=== PATIENT | female | born 1960 | race Asian ===

== ENCOUNTER 2025-01-03 11:00 | Emergency (ER) | payer MEDICARE, MEDICAID ==
[~2025-01-03] VITALS: Ht 154.9 cm; Wt 59.5 kg
[2025-01-03 11:05] VITALS: TEMP 98.1
[2025-01-03 11:38] LABS: BASOPHILS % (AUTO) 0.2 % (0-1); EOSINOPHILS # (AUTO) 0.1 X10'3 (0-0.9); EOSINOPHILS % (AUTO) 1.1 % (0-6); HEMATOCRIT 40.2 % (35.0-45.0); HEMOGLOBIN 13.1 g/dl (12.0-16.0); LYMPHOCYTES # (AUTO) 0.9 X10'3 (1.1-4.8); MEAN CORPUSCULAR HEMOGLOBIN 29.6 PG (27.0-31.0); MEAN CORPUSCULAR HGB CONC 32.6 g/dL (33.0-36.5); MEAN CORPUSCULAR VOLUME 90.7 FL (78-98); MEAN PLATELET VOLUME 8.3 FL (7.4-10.4); MONOCYTES # (AUTO) 0.6 X10'3 (0-0.9); MONOCYTES % (AUTO) 8.7 % (2-12); NEUTROPHILS # (AUTO) 4.7 X10'3 (1.8-7.7); PLATELET COUNT 222 X10'3 (140-440); RED BLOOD COUNT 4.43 X10'6 (4.20-5.60); RED CELL DISTRIBUTION WIDTH 12.7 % (11.5-14.5); WHITE BLOOD COUNT 6.3 X10'3 (4.5-11.0)
[2025-01-03 12:09] LABS: ALANINE AMINOTRANSFERASE 17 U/L (12-78); ALBUMIN 3.3 G/DL (3.4-5.0); ALBUMIN/GLOBULIN RATIO 0.7 (1.1-1.5); ALKALINE PHOSPHATASE 130 IU/L (46-116); ANION GAP 8 (8-16); ASPARTATE AMINO TRANSFERASE 21 U/L (10-37); BILIRUBIN,TOTAL 0.5 MG/DL (0.1-1.0); BLOOD UREA NITROGEN 12 MG/DL (7-18); BUN/CREATININE RATIO 17.4 (10.0-20.0); CALCIUM 8.7 MG/DL (8.5-10.1); CHLORIDE 105 MMOL/L (99-107); CREATININE 0.69 MG/DL (0.40-0.90); GLUCOSE 94 MG/DL (70-104); LIPASE 30 U/L (16-77); POTASSIUM 3.7 MMOL/L (3.5-5.1); SODIUM 140 MMOL/L (135-145); TOTAL CARBON DIOXIDE 27.2 MMOL/L (24-32); TOTAL PROTEIN 8.1 G/DL (6.4-8.2); eCRCL 61 ML/MIN; eGFR 85 ML/MIN
[2025-01-03 13:17] LABS: BILIRUBIN,URINE NEGATIVE (Neg); COLOR,URINE YELLOW (Yellow); GLUCOSE, URINE NEGATIVE (Neg); KETONES,URINE NEGATIVE (Neg); LEUKOCYTE ESTERASE ,URINE MODERATE (Neg); NITRITES, URINE NEGATIVE (Neg); OCCULT BLOOD,URINE NEGATIVE (Neg); PROTEIN,URINE NEGATIVE (Neg); URINE HCG NEGATIVE (NEG); UROBILINOGEN,URINE 0.2 E.U/dL (0.2-1.0)
[2025-01-03 13:29] LABS: CLARITY,URINE SLIGHTLY CLOUDY (Clear); UA COLLECTION TYPE CLN CATCH MIDSTREAM
[2025-01-03 13:31] LABS: BACTERIA,URINE FEW /HPF (Neg); RBC,URINE 0-2 /HPF (0-2); RENAL CELLS, URINE FEW /HPF; SQUAMOUS EPITHELIAL CELL,UR FEW /LPF (FEW); TRANSITIONAL EPI CELLS,URINE FEW /HPF; WBC,URINE 30-50 /HPF (0-4)
[2025-01-03] MEDS ORDERED: CEPH-585 PO (15:02)
[2025-01-03] MEDS: CefTRIAXone 1000mg IM Kit (w/lidocaine diluent) IM STA (15:21)
[2025-01-03] MEDS: pantoprazole 40mg Tablet.DR PO STA (15:57)
[2025-01-03] MEDS: LIDOcaine 2% Viscous 15ml cup MM STA (15:57)
[2025-01-03] MEDS: mag hydrox/Alum hydrox/simeth 30ml oral suspension PO STA (15:57)
[2025-01-03] MEDS ORDERED: OMEP40CA21 PO (17:11)
[2025-01-03] MEDS ORDERED: SUCR1TAB PO (17:11)
[2025-01-03 17:15] VITALS: BP 132/62; PULSE 72; RESP 16; O2SAT 98
== END 2025-01-03 17:31 | disposition home or self-care (01) ==
LOC: ER 11:00
DX: R10.11 Right upper quadrant pain (principal); N39.0 Urinary tract infection, site not specified; K29.00 Acute gastritis without bleeding; E78.00 Pure hypercholesterolemia, unspecified
CPT/HCPCS: 36415; 76700; 80053; 81001; 81025; 83605; 83690; 84484; 85025; 87088; 93005; 96372; 99285; J0696